=== PATIENT | female | born 1995 | race Caucasian/White ===

== ENCOUNTER 2016-10-10 21:03 | Emergency (ER) | payer OTHER ==
[2016-10-10 21:54] VITALS: BP 120/63
[2016-10-10] MEDS ORDERED: Penicillin VK TAB* 250 MG PO ONE (22:37)
[2016-10-10] MEDS ORDERED: oxyCODONE/Acetamin 5/325 MG* TAB PO ONE (22:37)
--- NOTE | 2016-10-10 22:37 | ED ---
Throat Pain/Nasal Congestion - HPI Summary HPI Summary: 21 F w/ no PMH presents with dental pain today. She had previous dental pain in that area when she bite into something today and felt her tooth crack. She states that she also felt some pus leave the area. She called her dentist who stated to come to the ER for antibiotics and he could see her next . She denies any SOB, fever, chest pain, and difficulty swallowing. - History of Current Complaint Chief Complaint: EDDentalPain Time Seen by Provider: 10/10/16 22:17 - Allergies/Home Medications Allergies/Adverse Reactions: Allergies Allergy/AdvReac Type Severity Reaction Status Date / Time Bee Venom Allergy Difficulty Verified 02/29/16 11:13 Breathing PMH/Surg Hx/FS Hx/Imm Hx Respiratory History: Reports: Hx Asthma History: Reports: Hx Kidney Infection Psychiatric History: Reports: Hx Anxiety, Hx Depression Infectious Disease History: No Infectious Disease History: Denies: Traveled Outside the [place] in Last 30 Days - Family History Known Family History: Positive: Hypertension - Social History Alcohol Use: None Alcohol Amount: denies Substance Use Type: Reports: None Substance Use Comment - Amount & Last Used: denies Smoking Status (MU): Current Every Day Smoker Type: Cigarettes Amount Used/How Often: 1/2ppd Have You Smoked in the Last Year: Yes Review of Systems Negative: Fever Positive: Dental Pain Negative: Chest Pain Negative: Shortness Of Breath All Other Systems Reviewed And Are Negative: Yes Physical Exam Triage Information Reviewed: Yes Vital Signs On Initial Exam: Initial Vitals Temp Pulse Resp BP Pulse Ox 97.2 F 85 18 120/63 100 10/10/16 21:50 10/10/16 21:50 10/10/16 21:50 10/10/16 21:50 10/10/16 21:50 Vital Signs Reviewed: Yes Appearance: Positive: Well-Appearing Skin: Positive: Warm, Dry Head/Face: Positive: Normal Head/Face Inspection Eyes: Positive: Normal, EOMI, DENIZ, Conjunctiva Clear ENT: Positive: Normal ENT inspection, Pharynx normal, TMs normal Dental: Positive: Percussion Tenderness @ - 30, Gross Decay/Caries @ - 30. Negative: Dental Fracture @, Abscess @ Neck: Positive: Supple, Nontender, No Lymphadenopathy Respiratory/Lung Sounds: Positive: Clear to Auscultation, Breath Sounds Present Cardiovascular: Positive: Normal, RRR Diagnostics - Vital Signs Vital Signs Temp Pulse Resp BP Pulse Ox 10/10/16 21:50 97.2 F 85 18 120/63 100 - Laboratory Lab Statement: Any lab studies that have been ordered have been reviewed, and results considered in the medical decision making process. EENT Course/Dx - Course Course Of Treatment: 21 F presents with dental pain, has taken many pain medication without relief, said that was drainage from potential cracked tooth early today s/p bite into something, on exam tenderness to 30 no fracture or abscess noted, will treat with antibiotics and pain medication, patient agrees with plan, - Differential Diagnoses Differential Diagnoses: Dental Abscess, Dental Caries, Fractured Tooth - Diagnoses Provider Diagnoses: Pain, dental Discharge - Discharge Plan Condition: Good Disposition: HOME Prescriptions: Penicillin VK TAB* [Penicillin Vk Tab*] 500 mg PO QID #27 tab oxyCODONE/Acetamin 5/325 MG* [Percocet 5/325 TAB*] 1 tab PO Q6H PRN #12 tab MDD 4 PRN Reason: Pain Patient Education Materials: Toothache (ED), Penicillin V (By mouth), Oxycodone /Acetaminophen (By mouth) Referrals: [facility] [place] [facility] REFERRAL [Outside] Additional Instructions: Take antibiotics: 4 times a day for 7 days, first dose given ED Use ibuprofen every 6 hours and narcotic for break through pain Avoid hard, crunchy food until seen by dentist Follow up with dentist as scheduled Return to ED if develop fever, shortness of breath, pain with eye movement or swelling around eye Establish care with primary care physician
== END 2016-10-10 22:49 | disposition home or self-care (01) ==
LOC: ED 21:03
DX: K08.89 Other specified disorders of teeth and supporting structures (principal)
CPT/HCPCS: 99282; A9270-GY

== ENCOUNTER 2016-10-16 22:35 | Emergency (ER) | payer OTHER ==
[2016-10-16 22:54] VITALS: BP 117/90
[2016-10-16] MEDS ORDERED: oxyCODONE/Acetamin 5/325 MG* TAB PO ONE (23:28)
[2016-10-17] MEDS ORDERED: Amoxicillin PO (*) 500 MG CAP PO ONE (00:03)
--- NOTE | 2016-10-17 00:37 | ED ---
Throat Pain/Nasal Congestion - HPI Summary HPI Summary: 21 F presents with dental pain for 1 day. She states she feel at work and broke her left upper tooth. The tooth already had a cavity to it. She was already taking PCN for dental pain in another tooth pain since last week by me. She has a dental appointment scheduled for this . She denies any SOB , chest pain, swelling around the eyes, or difficulty swallowing. - History of Current Complaint Chief Complaint: EDDentalPain Time Seen by Provider: 10/16/16 23:12 - Allergies/Home Medications Allergies/Adverse Reactions: Allergies Allergy/AdvReac Type Severity Reaction Status Date / Time Bee Venom Allergy Difficulty Verified 02/29/16 11:13 Breathing PMH/Surg Hx/FS Hx/Imm Hx Endocrine/Hematology History: Denies: Hx Anticoagulant Therapy Respiratory History: Reports: Hx Asthma History: Reports: Hx Kidney Infection Psychiatric History: Reports: Hx Anxiety, Hx Depression Infectious Disease History: No Infectious Disease History: Denies: Traveled Outside the [place] in Last 30 Days - Family History Known Family History: Positive: Hypertension - Social History Alcohol Use: None Alcohol Amount: denies Substance Use Type: Reports: None Substance Use Comment - Amount & Last Used: denies Smoking Status (MU): Current Every Day Smoker Type: Cigarettes Amount Used/How Often: 1/2ppd Have You Smoked in the Last Year: Yes Review of Systems Negative: Fever Positive: Dental Pain Negative: Chest Pain Negative: Shortness Of Breath All Other Systems Reviewed And Are Negative: Yes Physical Exam Triage Information Reviewed: Yes Vital Signs On Initial Exam: Initial Vitals Temp Pulse Resp BP Pulse Ox 97.7 F 94 18 117/90 100 10/16/16 22:51 10/16/16 22:51 10/16/16 22:51 10/16/16 22:51 10/16/16 22:51 Vital Signs Reviewed: Yes Appearance: Positive: Well-Appearing Skin: Positive: Warm, Dry Head/Face: Positive: Normal Head/Face Inspection Eyes: Positive: Normal, EOMI, DENIZ, Conjunctiva Clear ENT: Positive: Normal ENT inspection, Pharynx normal, TMs normal Dental: Positive: Gross Decay/Caries @ - 11, Dental Fracture @ - 11. Negative: Abscess @, Bleeding Neck: Positive: Supple, Nontender, No Lymphadenopathy Respiratory/Lung Sounds: Positive: Clear to Auscultation, Breath Sounds Present Cardiovascular: Positive: Normal, RRR Procedures - Procedure Summary Procedure Summary: clean area, applied topical anaesthesia spray, applied dental paste to tooth number 11 Diagnostics - Vital Signs Vital Signs Temp Pulse Resp BP Pulse Ox 10/16/16 22:51 97.7 F 94 18 117/90 100 - Laboratory Lab Statement: Any lab studies that have been ordered have been reviewed, and results considered in the medical decision making process. EENT Course/Dx - Course Course Of Treatment: 21 F presents with dental pain s/p fracture tooth on counter, has been taking PCN for previous dental pain but states that upset stomach, took ibupforen for pain, has dental appt on this , due to nerve being exposed placed dental paste on area after anasethsia, tolerated procedure, will prescribe amoxillicin for antibiotics and pain medication and have follow up with dentist, patient agrees with plan - Differential Diagnoses Differential Diagnoses: Dental Abscess, Dental Caries, Fractured Tooth - Diagnoses Provider Diagnoses: Dental caries, Tooth fracture Discharge - Discharge Plan Condition: Good Disposition: HOME Prescriptions: Amoxicillin CAP* 500 mg PO Q12H #13 cap oxyCODONE/Acetamin 5/325 MG* [Percocet 5/325 TAB*] 1 tab PO Q6H PRN #8 tab MDD 4 PRN Reason: Pain Patient Education Materials: Toothache (ED) Referrals: [facility] [place] [facility] REFERRAL [Outside] No Primary Care Phys,NOPCP [Primary Care Provider] - Additional Instructions: Take antibiotics: twice a day for 7 days, first dose given in ED Use ibuprofen every 6 hours and narcotic for break through pain at night Avoid hard, crunchy food until seen by dentist Follow up with dentist as scheduled Return to ED if develop fever, shortness of breath, pain with eye movement or swelling around eye Establish care with primary care physician
== END 2016-10-17 00:14 | disposition home or self-care (01) ==
LOC: ED 22:35
DX: K02.9 Dental caries, unspecified (principal); K03.81 Cracked tooth; K08.89 Other specified disorders of teeth and supporting structures; F17.210 Nicotine dependence, cigarettes, uncomplicated
CPT/HCPCS: 99282; A9270-GY

== ENCOUNTER 2016-11-06 14:22 | Emergency (ER) | payer OTHER ==
[2016-11-06 14:26] VITALS: BP 148/74
[2016-11-06] MEDS ORDERED: oxyCODONE/Acetamin 5/325 MG* TAB PO ONE (15:36)
[2016-11-06] MEDS ORDERED: Amoxicillin PO (*) 250 MG CAP PO ONE (15:36)
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
== END 2016-11-06 16:37 | disposition home or self-care (01) ==
LOC: ED 14:22
DX: K08.89 Other specified disorders of teeth and supporting structures (principal); F17.210 Nicotine dependence, cigarettes, uncomplicated
CPT/HCPCS: 99282; A9270-GY

== ENCOUNTER → 2017-01-21 12:24 | Emergency (ER) | payer OTHER ==
[~2017-01-21 12:24] MED LIST: Amoxicillin CAP* 250 MG PO ONE
[2017-01-21 13:20] VITALS: BP 115/84
--- NOTE | 2017-01-21 13:42 | ED ---
Throat Pain/Nasal Congestion - HPI Summary HPI Summary: 21F presents with dental pain for three days. pain is located on right lower tooth. Has dental appointment next . Denies any fever, chest pain, SOB , or difficulty swallowing. She took some percocet for previous dental infection which seemed to help. She has also been taking ibuprofen - History of Current Complaint Chief Complaint: EDDentalPain Time Seen by Provider: 01/21/17 13:00 - Allergies/Home Medications Allergies/Adverse Reactions: Allergies Allergy/AdvReac Type Severity Reaction Status Date / Time Bee Venom Allergy Difficulty Verified 02/29/16 11:13 Breathing PMH/Surg Hx/FS Hx/Imm Hx Endocrine/Hematology History: Denies: Hx Anticoagulant Therapy Respiratory History: Reports: Hx Asthma History: Reports: Hx Kidney Infection Psychiatric History: Reports: Hx Anxiety, Hx Depression Infectious Disease History: No Infectious Disease History: Denies: Traveled Outside the [place] in Last 30 Days - Family History Known Family History: Positive: Hypertension - Social History Alcohol Use: None Alcohol Amount: denies Substance Use Type: Reports: None Substance Use Comment - Amount & Last Used: denies Smoking Status (MU): Current Every Day Smoker Type: Cigarettes Amount Used/How Often: 1/2ppd Have You Smoked in the Last Year: Yes Review of Systems Negative: Fever Positive: Dental Pain Negative: Chest Pain Positive: Shortness Of Breath All Other Systems Reviewed And Are Negative: Yes Physical Exam Triage Information Reviewed: Yes Vital Signs On Initial Exam: Initial Vitals Temp Pulse Resp BP Pulse Ox 97.3 F 93 18 115/64 90 01/21/17 12:27 01/21/17 12:27 01/21/17 12:27 01/21/17 12:27 01/21/17 12:27 Vital Signs Reviewed: Yes Appearance: Positive: Well-Appearing Skin: Positive: Warm, Dry Head/Face: Positive: Normal Head/Face Inspection Eyes: Positive: Normal, Conjunctiva Clear ENT: Positive: Normal ENT inspection, Pharynx normal, TMs normal Dental: Positive: Percussion Tenderness @ - 30, Gross Decay/Caries @ - 30. Negative: Abscess @, Bleeding Respiratory/Lung Sounds: Positive: Clear to Auscultation, Breath Sounds Present Cardiovascular: Positive: Normal, RRR Diagnostics - Vital Signs Vital Signs Temp Pulse Resp BP Pulse Ox 01/21/17 12:39 97.3 F 93 18 115/84 97 01/21/17 12:27 97.3 F 93 18 115/64 90 - Laboratory Lab Statement: Any lab studies that have been ordered have been reviewed, and results considered in the medical decision making process. EENT Course/Dx - Course Course Of Treatment: 21F presents with dental pain for 3 days. pain located at tooth 30. denies any fever, chest pain or SOB. will treat with amoxicllin and pain medication. patient understands and agrees with plan - Differential Diagnoses Differential Diagnoses: Dental Abscess, Dental Caries, Fractured Tooth - Diagnoses Provider Diagnoses: Pain, dental Discharge - Discharge Plan Condition: Good Disposition: HOME Prescriptions: Amoxicillin CAP* [Amoxicillin 500 MG CAP*] 500 mg PO Q12H #13 cap oxyCODONE/Acetamin 5/325 MG* [Percocet 5/325 TAB*] 1 tab PO Q6H PRN #6 tab MDD 4 PRN Reason: Pain Patient Education Materials: Toothache (ED) Referrals: [facility] [place] [facility] REFERRAL [Outside] Additional Instructions: Take antibiotics twice a day, first dose given in ED Use ibuprofen every 6 hours and narcotic for break through pain at night Avoid hard, crunchy food until seen by dentist Follow up with dentist as soon as possible Return to ED if develop fever, shortness of breath, pain with eye movement or swelling around eye Establish care with primary care physician Images - Images Dental: 1 - pain
== END | disposition home or self-care (01) ==
LOC: ED 12:24
DX: K08.89 Other specified disorders of teeth and supporting structures (principal); R06.02 Shortness of breath; F17.210 Nicotine dependence, cigarettes, uncomplicated
CPT/HCPCS: 99281

== ENCOUNTER 2017-02-02 13:00 | Emergency (ER) | payer OTHER ==
[2017-02-02 13:13] VITALS: BP 120/73
== END 2017-02-02 13:20 | disposition left against medical advice (07) ==
LOC: ED 13:00
DX: R51 Headache (principal); Z53.20 Procedure and treatment not carried out because of patient's decision for unspecified reasons

== ENCOUNTER 2017-10-30 16:43 | Emergency (ER) | payer OTHER ==
[2017-10-30] MEDS ORDERED: oxyCODONE/Acetamin 5/325 MG* TAB PO ONE (17:23)
[2017-10-30] MEDS ORDERED: Benzocaine (DENTAL) 7.5%* 10 GM TOP.GEL TOPICAL ONE (18:25)
[2017-10-30] MEDS ORDERED: Clindamycin CAP* 150 MG PO ONE (18:26)
--- NOTE | 2017-10-30 18:30 | ED ---
Throat Pain/Nasal Congestion - HPI Summary HPI Summary: 22 female presents to ED with complaints of dental pain that has been ongoing for the past few days. Patient states she was diagnosed with dental abscess and wisdom tooth impaction 4 days ago, began on bactrim for infection and has been taking ibuprofen without relief. Pain has become unbearable. Patient states the bactrim gave her an upset stomach so she stopped taking it. Is scheduled to go to oral surgeon next week to pull teeth. Patient has taken tramadol, tylenol and ibuprofen without relief. Also has been using topical anesthetic. No drainage, difficulty swallowing, difficult breathing or fever/chills. States an abscess may have popped. Denies sore throat. Chewing makes pain worse. No other complaints. No PMHx other than depression. - History of Current Complaint Chief Complaint: EDDentalPain Time Seen by Provider: 10/30/17 17:31 Hx Obtained From: Patient, Family/[employer] - mother Onset/Duration: Gradual Onset, Lasting Days, Still Present, Worse Since Severity: Severe Associated Signs And Symptoms: Positive: Negative Cough: None - Allergies/Home Medications Allergies/Adverse Reactions: Allergies Allergy/AdvReac Type Severity Reaction Status Date / Time Latex, Natural Rubber Allergy Hives Verified 10/30/17 17:11 MS Bee Venom [Bee Venom] Allergy Difficulty Verified 02/29/16 11:13 Breathing PMH/Surg Hx/FS Hx/Imm Hx Endocrine/Hematology History: Denies: Hx Anticoagulant Therapy Respiratory History: Reports: Hx Asthma History: Reports: Hx Kidney Infection Psychiatric History: Reports: Hx Anxiety, Hx Depression - Surgical History Surgery Procedure, Year, and Place: n/a - Immunization History Immunizations Up to Date: Yes Infectious Disease History: No Infectious Disease History: Denies: Traveled Outside the [place] in Last 30 Days - Family History Known Family History: Positive: Hypertension - Social History Alcohol Use: None Alcohol Amount: denies Substance Use Type: Reports: None Substance Use Comment - Amount & Last Used: denies Smoking Status (MU): Current Every Day Smoker Type: Cigarettes Amount Used/How Often: 1/2ppd Have You Smoked in the Last Year: Yes Review of Systems Constitutional: Negative Positive: Dental Pain Cardiovascular: Negative Respiratory: Negative All Other Systems Reviewed And Are Negative: Yes Physical Exam Triage Information Reviewed: Yes Vital Signs On Initial Exam: Initial Vitals Temp Pulse Resp BP Pulse Ox 97.5 F 111 16 131/90 97 10/30/17 17:07 10/30/17 17:07 10/30/17 17:07 10/30/17 17:07 10/30/17 17:07 tachycardia noted, patient writhing in pain on exam table Vital Signs Reviewed: Yes Appearance: Positive: Well-Appearing, No Pain Distress, Well-Nourished Skin: Positive: Warm, Skin Color Reflects Adequate Perfusion, Dry Head/Face: Positive: Normal Head/Face Inspection, Other - no edema or abscess palapted Eyes: Positive: Conjunctiva Clear Dental: Positive: Gross Decay/Caries @, Dental Fracture @ - #4, Other - impacted wisdom tooth bottom right noted. no drainage. Negative: Abscess @, Cervical Lymphadenopathy Neck: Positive: Supple, Nontender, No Lymphadenopathy Respiratory/Lung Sounds: Positive: Clear to Auscultation, Breath Sounds Present. Negative: Rales, Rhonchi, Wheezes Cardiovascular: Positive: Normal, RRR, Pulses are Symmetrical in both Upper and Lower Extremities. Negative: Murmur, Rub Neurological: Positive: Normal Diagnostics - Vital Signs Vital Signs Temp Pulse Resp BP Pulse Ox 10/30/17 17:45 20 10/30/17 17:07 97.5 F 111 16 131/90 97 - Laboratory Lab Statement: Any lab studies that have been ordered have been reviewed, and results considered in the medical decision making process. EENT Course/Dx - Course Course Of Treatment: given pain management while in ED. Had last advil 2-3 hours ago, states she took ~12 throughout last night and today. educated on abscess and wisdom tooth impaction. has scheduled appt for nex week with oral surgeon, encouraged getting in sooner. salt water gargles, topical oragel and pain medication along with appropriate dosing of ibuprofen, also educated on at home. also switched bactrim to clindamycin due to patient stating it gave her an upset stomach and she stopped taking it. good oral hygeine. soft foods and liquid diet. no other concerns at this time. normal oropharynx otherwise. follow up denitst. aware of worsening signs and symptoms to watch out for. - Differential Diagnoses Differential Diagnoses: Dental Abscess, Dental Caries, Other - wisdome tooth impaction - Diagnoses Provider Diagnoses: Toothache, Dental infection Discharge - Discharge Plan Condition: Stable Disposition: HOME Prescriptions: Clindamycin Cap(NF) [Clindamycin Cap 300 mg Cap(NF)] 300 mg PO TID #30 cap oxyCODONE/Acetamin 5/325 MG* [Percocet 5/325 TAB*] 1 tab PO Q6H PRN #14 tab MDD 2 PRN Reason: Pain Patient Education Materials: Dental Abscess (ED), Toothache (ED) Referrals: [facility] REFERR[facility] [Outside] Alverto Neville MD [Doctor of Dental Medicine] - Kiel Villela MD [Doctor of Dental Medicine] - Additional Instructions: Please call tomorrow to make an appointment to have teeth pulled as instructed. Stop bactrim and take clindamycin in replace. Recommend daily probiotic or eating tuvaluan yogurt to replenish normal laura while taking antibiotics. Take ibuprofen with food every 6-8 hours ONLY 600MG. Take pain medication only as needed for break through pain. Salt water swishes. Try ice instead of heat. Liquid, soft foods diet. Good oral hygiene. Apply orajel multiple times daily to help with pain. Follow up with oral surgeon/dentist. Any new or worsening symptoms please seek medical attention promptly.
[2017-10-30 18:44] VITALS: BP 127/84
== END 2017-10-30 18:43 | disposition home or self-care (01) ==
LOC: ED 16:43
DX: K04.7 Periapical abscess without sinus (principal); K08.89 Other specified disorders of teeth and supporting structures; F17.210 Nicotine dependence, cigarettes, uncomplicated
CPT/HCPCS: 99282; A9270-GY

== ENCOUNTER 2018-03-10 18:31 | Emergency (ER) | payer OTHER ==
[2018-03-10] MEDS ORDERED: Penicillin VK TAB* 250 MG PO ONE (19:55)
[2018-03-10 20:18] VITALS: BP 130/78
--- NOTE | 2018-03-10 20:21 | ED ---
Throat Pain/Nasal Congestion - HPI Summary HPI Summary: 22-year-old female presents with dental pain for the past couple days. She fractured her tooth 21 and is having extreme pain. She states she is took some tramadol states that she had home. she also tried Tylenol ibuprofen with minimal relief. She states that temperature and water make it worse. She has a dentist appointment on . She is requesting a Novocaine shot. No pain with eye movement. No sore throat. no difficulty swallowing. No chest pain shortness breath. - History of Current Complaint Chief Complaint: EDDentalPain Time Seen by Provider: 03/10/18 19:25 - Allergies/Home Medications Allergies/Adverse Reactions: Allergies Allergy/AdvReac Type Severity Reaction Status Date / Time Latex, Natural Rubber Allergy Hives Verified 10/30/17 17:11 MS Bee Venom [Bee Venom] Allergy Difficulty Verified 02/29/16 11:13 Breathing PMH/Surg Hx/FS Hx/Imm Hx Endocrine/Hematology History: Denies: Hx Anticoagulant Therapy Respiratory History: Reports: Hx Asthma History: Reports: Hx Kidney Infection Psychiatric History: Reports: Hx Anxiety, Hx Depression - Surgical History Surgery Procedure, Year, and Place: n/a Infectious Disease History: No Infectious Disease History: Denies: Traveled Outside the [place] in Last 30 Days - Family History Known Family History: Positive: Hypertension - Social History Alcohol Use: None Alcohol Amount: denies Substance Use Type: Reports: None Substance Use Comment - Amount & Last Used: denies Smoking Status (MU): Current Every Day Smoker Type: Cigarettes Amount Used/How Often: 1/2ppd Have You Smoked in the Last Year: Yes Review of Systems Negative: Fever Positive: Dental Pain Negative: Chest Pain Negative: Shortness Of Breath All Other Systems Reviewed And Are Negative: Yes Physical Exam Triage Information Reviewed: Yes Vital Signs On Initial Exam: Initial Vitals Temp Pulse Resp BP Pulse Ox 97.9 F 89 19 134/88 99 03/10/18 18:49 03/10/18 18:49 03/10/18 18:49 03/10/18 18:49 03/10/18 18:49 Vital Signs Reviewed: Yes Appearance: Positive: Well-Appearing Skin: Positive: Warm, Dry Head/Face: Positive: Normal Head/Face Inspection Eyes: Positive: Normal, EOMI, DENIZ, Conjunctiva Clear ENT: Positive: Normal ENT inspection, Pharynx normal, TMs normal Dental: Positive: Dental Fracture @ - 21 Neck: Positive: Supple, Nontender, No Lymphadenopathy Respiratory/Lung Sounds: Positive: Clear to Auscultation, Breath Sounds Present Cardiovascular: Positive: Normal, RRR Musculoskeletal: Positive: Normal Neurological: Positive: Normal Psychiatric: Positive: Normal Diagnostics - Vital Signs Vital Signs Temp Pulse Resp BP Pulse Ox 03/10/18 20:16 98 F 86 18 130/78 98 03/10/18 18:49 97.9 F 89 19 134/88 99 - Laboratory Lab Statement: Any lab studies that have been ordered have been reviewed, and results considered in the medical decision making process. EENT Course/Dx - Course Course Of Treatment: 22-year-old female presents with dental pain for the past couple days. She fractured her tooth 21 and is having extreme pain. She states she is took some tramadol states that she had home. she also tried Tylenol ibuprofen with minimal relief. She states that temperature and water make it worse. She has a dentist appointment on . She is requesting a Novocaine shot. No pain with eye movement. No sore throat. no difficulty swallowing. No chest pain shortness breath. On exam has fractured tooth at tooth 21. No evidence of abscess. Discussed placing a temporary filling and patient declined. Gave Novocaine shot. gave pain medication and penicillin. Told to follow with dentist. Patient understands agrees plan. - Differential Diagnoses Differential Diagnoses: Dental Abscess, Dental Caries, Fractured Tooth - Diagnoses Provider Diagnoses: Dental caries Discharge - Sign-Out/Discharge Documenting (check all that apply): Discharge/Admit/Transfer - Discharge Plan Condition: Good Disposition: HOME Prescriptions: oxyCODONE/Acetamin 5/325 MG* [Percocet 5/325 TAB*] 1 tab PO Q6H PRN #8 tab MDD 4 PRN Reason: Pain Penicillin VK TAB* [Penicillin VK 250 mg Tab*] 500 mg PO QID #27 tab Patient Education Materials: Toothache (ED) Forms: *Work Release Referrals: [facility] [facility] [place] [facility] [Outside] Additional Instructions: Take antibiotics: 4 times a day for 7 days, first dose given in ED Use ibuprofen every 6 hours and narcotic for break through pain at night Avoid hard, crunchy food until seen by dentist Follow up with dentist as soon as possible Return to ED if develop fever, shortness of breath, pain with eye movement or swelling around eye - Billing Disposition and Condition Condition: GOOD Disposition: Home Images - Images Dental: 1 - dental fracture
== END 2018-03-10 20:16 | disposition home or self-care (01) ==
LOC: ED 18:31
DX: K02.9 Dental caries, unspecified (principal); F17.210 Nicotine dependence, cigarettes, uncomplicated
CPT/HCPCS: 99282; A9270-GY

== ENCOUNTER 2018-03-14 04:46 | Emergency (ER) | payer OTHER ==
[2018-03-14] MEDS ORDERED: Ketorolac INJ* 60 MG/2 ML VIAL IM ONE (05:08)
[2018-03-14] MEDS ORDERED: traMADol TAB* 50 MG PO ONE ×2 (05:08→07:02)
[2018-03-14 05:26] LABS: ABS Basophils 0 10^3/ul (0-0.2); ABS Eosinophils 0.2 10^3/ul (0-0.6); ABS Lymphocytes 2.1 10^3/ul (1.0-4.8); ABS Neutrophils 11.5 10^3/ul (1.5-7.7); ABS Nucleated RBC 0 10^3/ul; Eosinophil % 1.3 % (0-6); Hematocrit 44 % (35-47); Lymphocyte % 13.9 % (25-47); Mean Corpuscular HGB Conc 34 g/dl (31-36); Mean Corpuscular Hemoglobin 32 pg (27-31); Mean Corpuscular Volume 92 fL (80-97); Mean Platelet Volume 7.7 um3 (7.4-10.4); Nucleated Red Blood Cells % 0; Platelet Count 264 10^3/ul (150-450); Red Blood Count 4.74 10^6/ul (4.00-5.40); Red Cell Distribution Width 13 % (10.5-15); White Blood Count 14.8 10^3/ul (3.5-10.8)
[2018-03-14 05:40] LABS: EGFR Non-African American 104.6 (>60)
[2018-03-14] MEDS ORDERED: Cyclobenzaprine TAB* 10 MG PO ONE (07:02)
[2018-03-14] MEDS ORDERED: Ketorolac TAB * 10 MG TAB PO ONE (07:02)
--- NOTE | 2018-03-14 07:12 | ED ---
Eliezer Kruger Elizabeth, scribed for Lamine Madison MD on 03/14/18 at 0509 . Back Pain - HPI Summary HPI Summary: This patient is a 22 year old F BIBA to [facility] with a chief complaint of constant left flank pain since 16:00 yesterday. The patient reports that the pain radiates to the left side of her abdomen. Patient denies any injury. The patient rates the pain 8/10 in severity. Symptoms aggravated by nothing. Symptoms alleviated by nothing. Patient reports nausea. Patient denies dysuria and hematuria. Patient has hx of kidney stones but notes that her current pain is far worse than the pain when she last had a kidney stone. Patient notes she took Vicodin at 16:00 yesterday for pain management with minimal relief.. - History of Current Complaint Chief Complaint: EDFlankPain Stated Complaint: BACK PAIN/ABD PAIN Time Seen by Provider: 03/14/18 04:47 Hx Obtained From: Patient Onset/Duration: Sudden Onset, Lasting Hours, Still Present Onset/Duration: Started Hours Ago, Atraumatic, Still Present Timing: Constant Back Pain Location: Radiates To - L abdomen Severity Initially: Moderate Severity Currently: Moderate Pain Intensity: 8 Pain Scale Used: 0-10 Numeric Aggravating Symptom(s): Nothing Alleviating Symptom(s): Nothing Associated Signs And Symptoms: Positive: Abdominal Pain - left side, Flank Pain - left side - Allergies/Home Medications Allergies/Adverse Reactions: Allergies Allergy/AdvReac Type Severity Reaction Status Date / Time Latex, Natural Rubber Allergy Hives Verified 10/30/17 17:11 MS Bee Venom [Bee Venom] Allergy Difficulty Verified 02/29/16 11:13 Breathing Penicillins Allergy Hives Verified 03/14/18 04:48 PMH/Surg Hx/FS Hx/Imm Hx Endocrine/Hematology History: Denies: Hx Anticoagulant Therapy Respiratory History: Reports: Hx Asthma History: Reports: Hx Kidney Infection, Hx Kidney Stones Psychiatric History: Reports: Hx Anxiety, Hx Depression - Surgical History Surgery Procedure, Year, and Place: n/a - Immunization History Date of Tetanus Vaccine: utd Date of Influenza Vaccine: none Infectious Disease History: No Infectious Disease History: Denies: Traveled Outside the [place] in Last 30 Days - Family History Known Family History: Positive: Hypertension - Social History Alcohol Use: None Alcohol Amount: denies Substance Use Type: Reports: None Substance Use Comment - Amount & Last Used: denies Smoking Status (MU): Heavy Every Day Tobacco Smoker Type: Cigarettes Amount Used/How Often: 1/2ppd Have You Smoked in the Last Year: Yes Review of Systems Negative: Fever Negative: Epistaxis Positive: Abdominal Pain - left side, Nausea Positive: flank pain - left side. Negative: dysuria, hematuria All Other Systems Reviewed And Are Negative: Yes Physical Exam - Summary Physical Exam Summary: Appearance: Well-appearing, no distress, Well-nourished; uncooperative Skin: Warm, color reflects adequate perfusion Head: Normal Head/Face inspection Eyes: EOMI, PERRLA ENT: Normal inspection Neck: Supple, no nodes, no JVD. Respiratory: Lungs clear, Normal breath sounds, no respiratory distress Cardio: RRR, No murmur, pulses normal, brisk capillary refill Abdomen: soft, nontender, no guarding, no rebound Bowel sounds: present Musculoskeletal: Strength Intact/ ROM intact. No calf tenderness. No edema. Left flank tenderness, no swelling, no erythema, no midline spinal tenderness Neuro: Alert, muscle tone normal, facial symmetry, speech normal, sensory/motor intact Psychological: Normal Triage Information Reviewed: Yes Vital Signs On Initial Exam: Initial Vitals Temp Pulse Resp BP Pulse Ox 98.2 F 97 18 127/71 98 03/14/18 04:47 03/14/18 04:47 03/14/18 04:47 03/14/18 04:47 03/14/18 04:47 Vital Signs Reviewed: Yes Diagnostics - Vital Signs Vital Signs Temp Pulse Resp BP Pulse Ox 03/14/18 04:50 98.2 F 95 18 127/71 98 03/14/18 04:47 98.2 F 97 18 127/71 98 - Laboratory Lab Results: Lab Results 03/14/18 03/14/18 Range/Units 05:17 05:17 WBC 14.8 H (3.5-10.8) 10^3/ul RBC 4.74 (4.00-5.40) 10^6/ul Hgb 15.0 (12.0-16.0) g/dl Hct 44 (35-47) % MCV 92 (80-97) fL MCH 32 H (27-31) pg MCHC 34 (31-36) g/dl RDW 13 (10.5-15) % Plt Count 264 (150-450) 10^3/ul MPV 7.7 (7.4-10.4) um3 Neut % (Auto) 77.6 (38-83) % Lymph % (Auto) 13.9 L (25-47) % Motley % (Auto) 6.9 (0-7) % Eos % (Auto) 1.3 (0-6) % Baso % (Auto) 0.3 (0-2) % Absolute Neuts (auto) 11.5 H (1.5-7.7) 10^3/ul Absolute Lymphs (auto) 2.1 (1.0-4.8) 10^3/ul Absolute Monos (auto) 1.0 H (0-0.8) 10^3/ul Absolute Eos (auto) 0.2 (0-0.6) 10^3/ul Absolute Basos (auto) 0 (0-0.2) 10^3/ul Absolute Nucleated RBC 0 10^3/ul Nucleated RBC % 0 Sodium 137 (135-145) mmol/L Potassium 4.1 (3.5-5.0) mmol/L Chloride 104 (101-111) mmol/L Carbon Dioxide 28 (22-32) mmol/L Anion Gap 5 (2-11) mmol/L BUN 17 (6-24) mg/dL Creatinine 0.70 (0.51-0.95) mg/dL Est GFR ( Amer) 134.6 (>60) Est GFR (Non-Af Amer) 104.6 (>60) BUN/Creatinine Ratio 24.3 H (8-20) Glucose 93 (70-100) mg/dL Calcium 9.3 (8.6-10.3) mg/dL Total Bilirubin 0.30 (0.2-1.0) mg/dL AST 15 (13-39) U/L ALT 11 (7-52) U/L Alkaline Phosphatase 57 (34-104) U/L Total Protein 6.5 (6.4-8.9) g/dL Albumin 4.1 (3.2-5.2) g/dL Globulin 2.4 (2-4) g/dL Albumin/Globulin Ratio 1.7 (1-3) Lipase 10 L (11.0-82.0) U/L Beta HCG, Quant < 0.60 mIU/mL Result Diagrams: 03/14/18 05:17 03/14/18 05:17 Lab Statement: Any lab studies that have been ordered have been reviewed, and results considered in the medical decision making process. - CT No standard instances CT Interpretation: No Acute Changes Re-Evaluation - Re-Evaluation First Eval Re-Evaluation Time: 06:38 Change: Unchanged - Pt continues to refuse analgesia at this time. Pt pain unchanged. Awaiting Ct scan results. POt continues to refuse to provide UA as well. Second Eval Re-Evaluation Time: 07:03 Change: Improved - Pt resting comfortably in bed. Pt now agrees to oral analgesia. Plan for symptomatic treatment with close f/u. Back Pain Course/Dx - Course Course Of Treatment: Pt with negative lab and radiology w/u. Unclear etiology of pt's acute pain. Plan for symptomatic tx with close f/u. - Diagnoses Differential Diagnosis/HQI/PQRI: Positive: Epidural Abscess, Fracture, Herniated Disc, Neoplasm, Renal Colic, Strain, Sprain, Other - UTI Provider Diagnoses: Flank pain Discharge - Sign-Out/Discharge Documenting (check all that apply): Discharge/Admit/Transfer - Discharge Plan Condition: Improved Disposition: HOME Prescriptions: Ketorolac TAB * [Toradol TAB *] 10 mg PO Q6H PRN 3 Days #10 tab PRN Reason: Pain Methocarbamol TAB* [Robaxin 500 MG TAB*] 500 mg PO TID PRN 3 Days #10 tab PRN Reason: Pain predniSONE TAB* [Deltasone 20 MG TAB*] 40 mg PO DAILY 3 Days #6 tab Patient Education Materials: Flank Pain (ED) Referrals: No Primary Care Phys,NOPCP [Primary Care Provider] - 2 Days Andrew Pineda MD [Medical Doctor] - As Soon As Possible - Billing Disposition and Condition Condition: IMPROVED Disposition: Home The documentation as recorded by the Eliezer felton Elizabeth accurately reflects the service I personally performed and the decisions made by Gricelda torres Omari A, MD.
[2018-03-14 07:44] VITALS: BP 111/76
--- NOTE | 2018-03-14 08:01 | RAD ---
CLINICAL HISTORY: right flank pain , COMPARISON: May 17, 2013 TECHNIQUE: Multiple contiguous axial CT scans were obtained of the abdomen and pelvis, without intravenous contrast enhancement. Coronal and sagittal multiplanar reformations are submitted for review. Oral contrast was not administered. FINDINGS: The study is limited by the lack of intravenous contrast. This limits evaluation of the solid organs and vasculature. LUNG BASES: The lung bases are clear. LIVER: The liver is normal in shape, size, contour, and attenuation. BILE DUCTS: There is no intrahepatic or extrahepatic biliary dilatation. GALLBLADDER: The gallbladder is normal, without pericholecystic inflammatory change. PANCREAS: The pancreas is normal, without mass or ductal dilatation. SPLEEN: Normal in size and appearance. UPPER GI TRACT: Evaluation of the gastrointestinal tract is limited by incomplete gastric distention. The upper GI tract is unremarkable. SMALL BOWEL AND MESENTERY: The small bowel is normal in contour, course, and caliber. There is no obstruction or dilatation. COLON: The colon is normal in contour, course, caliber. There is no pericolonic inflammatory change. ADRENALS: Normal bilaterally. KIDNEYS: The kidneys are normal in shape, size, contour, and axis. There is no hydronephrosis or nephrolithiasis. BLADDER: The bladder is smooth in contour. PELVIC ORGANS: The left ovary is mildly prominent. The uterus and adnexa are otherwise grossly normal for technique. AORTA: The aorta is normal. IVC: Unremarkable LYMPH NODES: There is no lymphadenopathy by size criteria. ABDOMINAL WALL: There is no evidence for abdominal wall hernia. BONES AND SOFT TISSUES: Unremarkable OTHER: None IMPRESSION: MILDLY PROMINENT LEFT OVARY, WHICH MAY BE PHYSIOLOGIC. OTHERWISE, UNREMARKABLE NONCONTRAST CT OF THE ABDOMEN AND PELVIS.
== END 2018-03-14 07:43 | disposition home or self-care (01) ==
LOC: ED 04:46
DX: R10.9 Unspecified abdominal pain (principal); J45.909 Unspecified asthma, uncomplicated; F17.210 Nicotine dependence, cigarettes, uncomplicated; R11.0 Nausea; Z88.0 Allergy status to penicillin; Z88.8 Allergy status to other drugs, medicaments and biological substances; Z82.49 Family history of ischemic heart disease and other diseases of the circulatory system
CPT/HCPCS: 36415; 74176; 80053; 83690; 84702; 85025; 99283; A9270-GY; J1885

== ENCOUNTER 2019-03-06 00:28 | Emergency (ER) | payer OTHER ==
[2019-03-06] MEDS ORDERED: Clindamycin CAP* 150 MG PO ONE (01:10)
[2019-03-06] MEDS ORDERED: HYDROcodone/ACETAMIN 5-325 MG* 1 TAB PO ONE (01:10)
[2019-03-06 01:22] VITALS: BP 140/71
--- NOTE | 2019-03-06 01:38 | ED ---
Throat Pain/Nasal Congestion - HPI Summary HPI Summary: 23-year-old female presents with dental pain for the past 2 days. States she's had increasing swelling on the left side of her upper jaw. She states she has history of dental abscess. She has follow-up with the dentist next week. States the pain is constant and unbearable. She has been taking ibuprofen without relief. She denies any fevers. No pain or swelling around her eyes. No pain with eye movement. No chest pain or shortness of breath. On exam has abscess noted to left upper jaw. Patient declined I&D. Will place on clindamycin. Gave short course of pain medication. Patient understands agrees with plan. - History of Current Complaint Chief Complaint: EDDentalPain Time Seen by Provider: 03/06/19 00:40 - Allergies/Home Medications Allergies/Adverse Reactions: Allergies Allergy/AdvReac Type Severity Reaction Status Date / Time bee venom protein (honey bee) Allergy Difficulty Verified 03/06/19 00:37 Breathing/Wheezing Latex, Natural Rubber Allergy Hives Verified 03/06/19 00:36 Penicillins Allergy Hives Verified 03/06/19 00:36 PMH/Surg Hx/FS Hx/Imm Hx Endocrine/Hematology History: Denies: Hx Anticoagulant Therapy Respiratory History: Reports: Hx Asthma History: Reports: Hx Kidney Infection, Hx Kidney Stones Psychiatric History: Reports: Hx Anxiety, Hx Depression - Surgical History Surgery Procedure, Year, and Place: n/a - Immunization History Date of Tetanus Vaccine: utd Date of Influenza Vaccine: none Infectious Disease History: No Infectious Disease History: Denies: Traveled Outside the [place] in Last 30 Days - Family History Known Family History: Positive: Hypertension - Social History Alcohol Use: None Alcohol Amount: denies Substance Use Type: Reports: None Substance Use Comment - Amount & Last Used: denies Smoking Status (MU): Heavy Every Day Tobacco Smoker Type: Cigarettes Amount Used/How Often: 1/2ppd Have You Smoked in the Last Year: Yes Review of Systems Negative: Fever Positive: Dental Pain Negative: Chest Pain Negative: Shortness Of Breath All Other Systems Reviewed And Are Negative: Yes Physical Exam Triage Information Reviewed: Yes Vital Signs On Initial Exam: Initial Vitals Temp Pulse Resp BP Pulse Ox 98.7 F 116 16 148/90 99 03/06/19 00:30 03/06/19 00:30 03/06/19 00:30 03/06/19 00:30 03/06/19 00:30 Vital Signs Reviewed: Yes Appearance: Positive: Well-Appearing Skin: Positive: Warm, Dry Head/Face: Positive: Normal Head/Face Inspection Eyes: Positive: Normal, EOMI, Conjunctiva Clear ENT: Positive: Normal ENT inspection, Pharynx normal, TMs normal Dental: Positive: Abscess @ - left upper jaw. Negative: Gross Decay/Caries @ Neck: Positive: Supple, Nontender, No Lymphadenopathy Respiratory/Lung Sounds: Positive: Clear to Auscultation, Breath Sounds Present Cardiovascular: Positive: Normal, RRR Musculoskeletal: Positive: Normal Neurological: Positive: Normal Psychiatric: Positive: Normal Diagnostics - Vital Signs Vital Signs Temp Pulse Resp BP Pulse Ox 03/06/19 01:21 98.7 F 99 16 140/71 99 03/06/19 00:30 98.7 F 116 16 148/90 99 - Laboratory Lab Statement: Any lab studies that have been ordered have been reviewed, and results considered in the medical decision making process. EENT Course/Dx - Course Course Of Treatment: 23-year-old female presents with dental pain for the past 2 days. States she's had increasing swelling on the left side of her upper jaw. She states she has history of dental abscess. She has follow-up with the dentist next week. States the pain is constant and unbearable. She has been taking ibuprofen without relief. She denies any fevers. No pain or swelling around her eyes. No pain with eye movement. No chest pain or shortness of breath. On exam has abscess noted to left upper jaw. Patient declined I&D. Will place on clindamycin. Gave short course of pain medication. Patient understands agrees with plan. - Differential Diagnoses Differential Diagnoses: Dental Abscess, Dental Caries, Fractured Tooth - Diagnoses Provider Diagnoses: Dental abscess Discharge - Sign-Out/Discharge Documenting (check all that apply): Patient Departure Patient Received Moderate/Deep Sedation with Procedure: No - Discharge Plan Condition: Good Disposition: HOME Prescriptions: Clindamycin Cap(NF) [Clindamycin Cap 300 mg Cap(NF)] 300 mg PO TID #20 cap HYDROcodone/ACETAMIN 5-325 MG* [[place] 5-325 TAB*] 1 tab PO Q6H PRN #6 tab MDD 4 PRN Reason: Pain Patient Education Materials: Dental Abscess (ED) Referrals: [facility] [facility] [place] [facility] [[place]] Additional Instructions: Take clindamycin three times a day for 7 days Take ibuprofen every 6 hours for pain as needed, use norco for break through pain every 6 hours Avoid hard, crunchy food until seen by dentist Return to ED if develop any new or worsening symptoms Establish care with primary care physician and dentist as soon as possible - Billing Disposition and Condition Condition: GOOD Disposition: Home
== END 2019-03-06 01:21 | disposition home or self-care (01) ==
LOC: ED 00:28
DX: K04.7 Periapical abscess without sinus (principal); Z88.0 Allergy status to penicillin; Z91.030 Bee allergy status; Z91.040 Latex allergy status; F17.210 Nicotine dependence, cigarettes, uncomplicated
CPT/HCPCS: 99282; A9270-GY

== ENCOUNTER 2019-05-31 00:11 | Emergency (ER) | payer SELFPAY ==
[2019-05-31] MEDS ORDERED: Clindamycin CAP* 150 MG PO ONE (01:54)
[2019-05-31] MEDS ORDERED: oxyCODONE/Acetamin 5/325 MG* TAB PO ONE (01:59)
--- NOTE | 2019-05-31 02:02 | ED ---
Throat Pain/Nasal Congestion - HPI Summary HPI Summary: Pt is a 23 y/o F presenting to the ED with a chief complaint of dental pain on the R lower jaw. She states it has worsened this evening, and the area is edematous. She denies fever. - History of Current Complaint Chief Complaint: EDDentalPain Time Seen by Provider: 05/31/19 01:51 Hx Obtained From: Patient Onset/Duration: Gradual Onset, Lasting Days, Still Present Severity: Moderate - Allergies/Home Medications Allergies/Adverse Reactions: Allergies Allergy/AdvReac Type Severity Reaction Status Date / Time bee venom protein (honey bee) Allergy Difficulty Verified 05/31/19 00:26 Breathing/Wheezing Latex, Natural Rubber Allergy Hives Verified 05/31/19 00:26 Penicillins Allergy Hives Verified 05/31/19 00:26 PMH/Surg Hx/FS Hx/Imm Hx Previously Healthy: Yes Endocrine/Hematology History: Denies: Hx Anticoagulant Therapy Respiratory History: Reports: Hx Asthma History: Reports: Hx Kidney Infection, Hx Kidney Stones Psychiatric History: Reports: Hx Anxiety, Hx Depression - Surgical History Surgery Procedure, Year, and Place: n/a - Immunization History Date of Tetanus Vaccine: utd Date of Influenza Vaccine: none Infectious Disease History: No Infectious Disease History: Denies: Traveled Outside the [place] in Last 30 Days - Family History Known Family History: Positive: Hypertension - Social History Alcohol Use: None Alcohol Amount: denies Hx Substance Use: No Substance Use Type: Reports: None Substance Use Comment - Amount & Last Used: denies Hx Tobacco Use: Yes Smoking Status (MU): Heavy Every Day Tobacco Smoker Type: Cigarettes Amount Used/How Often: 1/2ppd Have You Smoked in the Last Year: Yes Review of Systems Negative: Fever Positive: Dental Pain All Other Systems Reviewed And Are Negative: Yes Physical Exam - Summary Physical Exam Summary: Appearance: Well-appearing, Well-nourished, lying in bed comfortably Skin: Warm, dry, no obvious rash Eyes: sclera anicteric, no conjunctival pallor ENT: mucous membranes moist, pt is pointing to what looks like a dental abscess on the R lower 1st molar. Neck: Supple, nontender Respiratory: Clear to auscultation, no signs of respiratory distress Cardiovascular: Normal S1, S2. No murmurs. Normal distal pulses in tibial and radial bilaterally. Abdomen: Soft, nontender, normal active bowel sounds present Musculoskeletal: Normal, Strength/ROM Intact Neurological: A&Ox3, awake and alert, mentation is normal, speech is fluent and appropriate Psychiatric: affect is normal, does not appear anxious or depressed Triage Information Reviewed: Yes Vital Signs On Initial Exam: Initial Vitals Temp Pulse Resp BP Pulse Ox 97.0 F 112 20 141/76 98 05/31/19 00:20 05/31/19 00:20 05/31/19 00:20 05/31/19 00:20 05/31/19 00:20 Vital Signs Reviewed: Yes Diagnostics - Vital Signs Vital Signs Temp Pulse Resp BP Pulse Ox 05/31/19 00:20 97.0 F 112 20 141/76 98 - Laboratory Lab Statement: Any lab studies that have been ordered have been reviewed, and results considered in the medical decision making process. EENT Course/Dx - Course Course Of Treatment: Pt is a 23 y/o F presenting to the ED with a chief complaint of dental pain on the R lower jaw. She states it has worsened this evening, and the area is edematous. She denies fever. On exam, the pt is pointing to what looks like a dental abscess on the R lower 1st molar. I drained the abscess with a stab incision using an 11 blade,with good purulent drainag, with relief to the patient. She will be d/c'ed with dx of dental abscess. She is stable and agreeable with this plan. - Diagnoses Provider Diagnoses: Dental abscess Discharge ED - Sign-Out/Discharge Documenting (check all that apply): Patient Departure Patient Received Moderate/Deep Sedation with Procedure: No - Discharge Plan Condition: Stable Disposition: HOME Prescriptions: Clindamycin HCl 300 mg PO TID #30 capsule Patient Education Materials: Dental Abscess (ED) Referrals: [facility] [Outside] Additional Instructions: Between lancing the abscess and the antibiotics this should be much improved over the next couple of days, but make sure to see your dentist to have the problem addressed definitively. - Billing Disposition and Condition Condition: STABLE Disposition: Home - Attestation Statements Document Initiated by Scribe: Yes Documenting Scribe: Dalila Vivas Provider For Whom [employer] is Documenting (Include Credential): Raphael Mohamud MD. Scribe Attestation: Dalila Kruger, scribed for Raphael Mohamud MD. on 05/31/19 at 2158. Scribe Documentation Reviewed: Yes Provider Attestation: The documentation as recorded by the scribe, Dalila Vivas accurately reflects the service I personally performed and the decisions made by me, Raphael Mohamud MD. Status of Scribe Document: Viewed
[2019-05-31 02:24] VITALS: BP 122/63
== END 2019-05-31 02:26 | disposition home or self-care (01) ==
LOC: ED 00:11
DX: K04.7 Periapical abscess without sinus (principal); F17.210 Nicotine dependence, cigarettes, uncomplicated; F41.9 Anxiety disorder, unspecified; F32.9 Major depressive disorder, single episode, unspecified; Z88.0 Allergy status to penicillin; Z87.442 Personal history of urinary calculi
CPT/HCPCS: 99282; A9270-GY